=== PATIENT | female | born 1970 | race Caucasian/White ===

== ENCOUNTER 2017-08-03 13:08 | Observation (INO) | payer SELFPAY ==
[2017-08-03] MEDS ORDERED: NITROGLYCERIN 0.4 MG/TAB SL ONE (13:43)
[2017-08-03] MEDS ORDERED: ASPIRIN 81 MG CHEWABLE TABLET ONE (13:43)
[2017-08-03 14:12] LABS: Absolute Lymphocytes (CBC) 1.8 K/uL (0.7-4.9); Absolute Monocytes 0.5 K/uL (0.1-1.3); Absolute Neutrophil 3.7 K/uL (1.8-8.0); Basophils % 0.6 % (0-1.3); Eosinophils % 5.7 % (0-4.4); Hematocrit 44.9 % (36.0-45.0); Lymphocytes % 27.9 % (15.3-44.8); MCH 30.1 pg (27.0-35.0); MCV 89.9 fL (80-100); MPV 10.5 fL (7.6-11.3); Monocytes % 7.6 % (3.3-12.3); RBC Red Blood Cell Count 4.99 M/uL (3.86-4.86)
[2017-08-03 14:24] LABS: Bicarbonate 28 mEq/L (21-31); Glucose Level 92 mg/dL (65-120); Potassium 3.7 mEq/L (3.6-5.0); Sodium Level 139 mEq/L (135-145)
[2017-08-03 14:30] LABS: ALT/SGPT 13 IU/L (10-60); AST/SGOT 18 IU/L (10-42); Albumin 4.2 g/dL (3.2-5.5); Alkaline Phosphatase 89 IU/L (42-121); BUN Blood Urea Nitrogen 16 mg/dL (6-20); Bilirubin Direct < 0.1 mg/dL (0-0.2); Bilirubin Total 0.5 mg/dL (0.3-1.2); Glomerular Filtration Rate 82 mL/min (=/>90); Protein, Total 7.3 g/dL (6.0-8.3)
--- NOTE | 2017-08-03 14:50 | RAD REPORT ---
EXAM DESCRIPTION: RAD - Chest Single View - 08/03/2017 2:31 pm CLINICAL HISTORY: Chest pain. COMPARISON: None. FINDINGS: Portable technique limits examination quality. The lungs are grossly clear. The heart is normal in size. No displaced fractures. IMPRESSION: No acute intrathoracic process suspected.
--- NOTE | 2017-08-03 14:55 | EDPHYS ---
Physician Documentation [facility] Name: Janett Fajardo Age: 47 yrs Sex: Female : 1970 Arrival Date: 08/03/2017 Time: 13:09 Bed 23 Private MD: ED Physician Jules Orozco HPI: 08/03 14:52 This 47 yrs old Female presents to ER via Wheelchair with complaints of Chest jr8 Pain. 14:52 The patient or guardian reports chest pain that is located primarily in the anterior jr8 chest wall, left. Onset: acutely, yesterday, and became worse today, and became persistent today. The pain radiates to the left arm, left neck, left back. Associated signs and symptoms: Pertinent positives: nausea. The chest pain is described as a heaviness, a pressure. Duration: The patient or guardian reports a single episode. Modifying factors: The symptoms are alleviated by nothing. the symptoms are aggravated by nothing. Severity of pain: At its worst the pain was moderate in the emergency department the pain is unchanged. The patient has not experienced similar symptoms in the past. The patient has not recently seen a physician. 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 - Social history:: Smoking status: Patient/guardian denies using tobacco, never smoked. ROS: 14:52 Eyes: Negative for injury, pain, redness, and discharge, ENT: Negative for injury, jr8 pain, and discharge, Neck: Negative for injury, pain, and swelling, Respiratory: Negative for shortness of breath, cough, wheezing, and pleuritic chest pain, Abdomen/GI: Negative for abdominal pain, nausea, vomiting, diarrhea, and constipation, Back: Negative for injury and pain, MS/Extremity: Negative for injury and deformity, Skin: Negative for injury, rash, and discoloration, Neuro: Negative for headache, weakness, numbness, tingling, and seizure. 14:52 Cardiovascular: Positive for chest pain, Negative for edema, orthopnea, palpitations, paroxysmal nocturnal dyspnea. Exam: 14:52 Eyes: Pupils equal round and reactive to light, extra-ocular motions intact. Lids and jr8 lashes normal. Conjunctiva and sclera are non-icteric and not injected. Cornea within normal limits. Periorbital areas with no swelling, redness, or edema. ENT: Nares patent. No nasal discharge, no septal abnormalities noted. Tympanic membranes are normal and external auditory canals are clear. Oropharynx with no redness, swelling, or masses, exudates, or evidence of obstruction, uvula midline. Mucous membranes moist. Neck: Trachea midline, no thyromegaly or masses palpated, and no cervical lymphadenopathy. Supple, full range of motion without nuchal rigidity, or vertebral point tenderness. No Meningismus. Chest/axilla: Normal chest wall appearance and motion. Nontender with no deformity. No lesions are appreciated. Cardiovascular: Regular rate and rhythm with a normal S1 and S2. No gallops, murmurs, or rubs. Normal PMI, no JVD. No pulse deficits. Respiratory: Lungs have equal breath sounds bilaterally, clear to auscultation and percussion. No rales, rhonchi or wheezes noted. No increased work of breathing, no retractions or nasal flaring. Abdomen/GI: Soft, non-tender, with normal bowel sounds. No distension or tympany. No guarding or rebound. No evidence of tenderness throughout. Back: No spinal tenderness. No costovertebral tenderness. Full range of motion. Skin: Warm, dry with normal turgor. Normal color with no rashes, no lesions, and no evidence of cellulitis. MS/ Extremity: Pulses equal, no cyanosis. Neurovascular intact. Full, normal range of motion. Neuro: Awake and alert, GCS 15, oriented to person, place, time, and situation. Cranial nerves II-XII grossly intact. Motor strength 5/5 in all extremities. Sensory grossly intact. Cerebellar exam normal. Normal gait. 14:52 Constitutional: The patient appears alert, awake, in obvious pain, uncomfortable. Vital Signs: 13:14 BP 189 / 116; Pulse 65; Resp 19; Pulse Ox 100% on R/A; Pain 10/10; tw2 14:29 BP 138 / 90; Pulse 57; Resp 18; Pulse Ox 98% on R/A; tl3 15:25 BP 160 / 96; Pulse 65; Resp 18; Pulse Ox 99% on R/A; tl3 MDM: 13:13 Patient medically screened. jr8 14:52 HEART Score: History: Highly Suspicious (2), ECG: Normal (0), Age: > 45 and < 65 years jr8 (1), Risk Factors: 1 or 2 risk factors (1), [Hypertension] Troponin: < or = 1 x Normal Limit (0). The patient was given aspirin in the Emergency Department. Data reviewed: vital signs, nurses notes, lab test result(s), EKG, radiologic studies, plain films, and as a result, I will admit patient. Data interpreted: Pulse oximetry: on room air is 98 %. Interpretation: normal. Counseling: I had a detailed discussion with the patient and/or guardian regarding: the historical points, exam findings, and any diagnostic results supporting the discharge/admit diagnosis, lab results, radiology results, the need for further work-up and treatment in the hospital. Medication response: Nitro x 3 partially relieved pain. 08/03 13:19 Order name: Basic Metabolic Panel; Complete Time: 14:32 8 08/03 13:19 Order name: BNP; Complete Time: 14:48 jr8 08/03 13:19 Order name: CBC with Diff; Complete Time: 14:32 8 08/03 13:19 Order name: LFT's; Complete Time: 14:32 8 08/03 13:19 Order name: Magnesium; Complete Time: 14:32 jr8 08/03 13:19 Order name: PT-INR; Complete Time: 14:32 8 08/03 13:19 Order name: Ptt, Activated; Complete Time: 14:32 [facility] 08/03 13:19 Order name: Troponin (emerg Dept Use Only); Complete Time: 14:32 jr8 08/03 16:04 Order name: Troponin I; Complete Time: 10:01 EDMS 08/03 16:04 Order name: Thyroid Stimulating Hormone; Complete Time: 10:01 EDMS 08/03 16:07 Order name: Urine 5HIAA (Serotonin) EDKS 08/03 16:07 Order name: Urine Catecholamines,24 HR EDMS 08/03 16:07 Order name: Urine VMA 24 Hr EDKS 08/03 17:22 Order name: Urine Dipstick--Ancillary (enter results) ag 08/03 13:19 Order name: XRAY Chest (1 view); Complete Time: 14:51 jr8 08/03 13:19 Order name: EKG; Complete Time: 13:20 jr8 08/03 13:19 Order name: Cardiac monitoring; Complete Time: 13:59 jr8 08/03 13:19 Order name: EKG - Nurse/Tech; Complete Time: 16:46 jr8 08/03 13:19 Order name: IV Saline Lock; Complete Time: 13:59 jr8 08/03 13:19 Order name: Labs collected and sent; Complete Time: 13:59 jr8 08/03 13:19 Order name: O2 Per Protocol; Complete Time: 13:59 jr8 08/03 13:19 Order name: O2 Sat Monitoring; Complete Time: 13:59 8 08/03 13:19 Order name: Urine Dipstick-Ancillary (obtain specimen); Complete Time: 16:57 jr8 08/03 16:04 Order name: CONS Physician Consult; Complete Time: 20:27 EDMS 08/03 16:04 Order name: Echo with Doppler EDKS 08/03 16:04 Order name: Heart Healthy; Complete Time: 20:27 EDMS 08/03 16:05 Order name: Renal Ultrasound-Complete; Complete Time: 16:58 EDMS Administered Medications: 13:45 Drug: Nitroglycerin 0.4 mg Route: Sublingual; tl3 13:57 Drug: Nitroglycerin 0.4 mg Route: Sublingual; tl3 15:27 Follow up: Response: No adverse reaction tl3 15:27 Follow up: Response: No adverse reaction tl3 15:27 Follow up: Response: No adverse reaction tl3 13:58 Drug: Aspirin Chewable Tablet 324 mg Route: PO; tl3 15:27 Follow up: Response: No adverse reaction tl3 Disposition: 17:59 Co-signature as Attending Physician, Jules Orozco MD. rn Disposition: 08/03/17 14:55 Hospitalization ordered by Roxie Lopez for Observation. Preliminary diagnosis is Chest pain, unspecified. - Bed requested for Telemetry/MedSurg (observation). - Status is Observation. tl3 - Condition is Stable. - Problem is new. - Symptoms have improved. UTI on Admission? No Signatures: Dispatcher [employer] EDMS Jules Orozco MD MD rn Arnaldo Cordova PA PA jr8 Katey Hummel Tammy, RN RN tl3
--- NOTE | 2017-08-03 14:55 | ER ---
Nurse's Notes [facility] Name: Janett Fajardo Age: 47 yrs Sex: Female : 1970 Arrival Date: 08/03/2017 Time: 13:09 Bed 23 Private MD: Diagnosis: Chest pain, unspecified Presentation: 08/03 13:15 Presenting complaint: Patient states: i started having chest pain yesterday, it is now tw2 through to my back and down my left arm. Transition of care: patient was not received from another setting of care. Onset of symptoms was August 02, 2017. Care prior to arrival: None. 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 - Social history:: Smoking status: Patient/guardian denies using tobacco, never smoked. Screenin:16 Abuse screen: Denies threats or abuse. Nutritional screening: No deficits noted. tw2 Tuberculosis screening: No symptoms or risk factors identified. Fall Risk None identified. Assessment: 13:25 General: Appears uncomfortable, well groomed, well developed, well nourished, Behavior tl3 is calm, cooperative, appropriate for age. Pain: Complains of pain in anterior aspect of left upper chest and left breast Pain radiates to left arm Pain currently is 10 out of 10 on a pain scale. Pain began 1 day ago. Neuro: Level of Consciousness is awake, alert, obeys commands, Oriented to person, place, time, situation, Appropriate for age. Cardiovascular: Heart tones S1 S2 present Capillary refill < 3 seconds in bilateral fingers Rhythm is regular. Respiratory: Airway is patent Trachea midline Respiratory effort is even, unlabored, labored, Respiratory pattern is regular, symmetrical, Breath sounds are clear bilaterally. GI: No signs and/or symptoms were reported involving the gastrointestinal system. : No signs and/or symptoms were reported regarding the genitourinary system. EENT: No signs and/or symptoms were reported regarding the EENT system. Derm: No signs and/or symptoms reported regarding the dermatologic system. Musculoskeletal: No signs and/or symptoms reported regarding the musculoskeletal system. 15:25 Reassessment: Patient appears in no apparent distress at this time. No changes from tl3 previously documented assessment. Patient and/or family updated on plan of care and expected duration. Pain level reassessed. Patient is alert, oriented x 3, equal unlabored respirations, skin warm/dry/pink. hospitalist at bedside discussing POC. 16:47 Reassessment: No changes from previously documented assessment. Patient and/or family tl3 updated on plan of care and expected duration. Pain level reassessed. Patient is alert, oriented x 3, equal unlabored respirations, skin warm/dry/pink. Vital Signs: 13:14 BP 189 / 116; Pulse 65; Resp 19; Pulse Ox 100% on R/A; Pain 10/10; tw2 14:29 BP 138 / 90; Pulse 57; Resp 18; Pulse Ox 98% on R/A; tl3 15:25 BP 160 / 96; Pulse 65; Resp 18; Pulse Ox 99% on R/A; tl3 ED Course: 13:09 Patient arrived in ED. as 13:13 Arnaldo Cordova PA is PHCP. jr8 13:13 Jules Orozco MD is Attending Physician. jr8 13:16 Triage completed. tw2 13:16 Placed in gown. Bed in low position. Call light in reach. patient monitor on. Pulse ox tw2 on. NIBP on. 13:16 Arm band placed on. tw2 13:30 Initial lab(s) drawn, by me, sent to lab. Inserted saline lock: 22 gauge in right hand, tl3 using aseptic technique. Blood collected. 13:40 Annamaria Jordan, RN is Primary Nurse. tl3 14:27 Door closed. Lights dimmed. Warm blanket given. tl3 14:27 No provider procedures requiring assistance completed. tl3 14:28 X-ray(s) taken. tl3 14:28 Patient maintains SpO2 saturation greater than 95% on room air. tl3 14:29 X-ray completed. Portable x-ray completed in exam room. Patient tolerated procedure ag1 well. 14:32 XRAY Chest (1 view) In Process Unspecified. EDMS 14:55 Roxie Lopez MD is Hospitalizing Provider. jr8 16:31 Ultrasound completed. Patient tolerated well. hr 16:32 Renal Ultrasound-Complete In Process Unspecified. EDMS 17:18 Repeat lab(s) drawn. by me, sent to lab. Urine collected: clean catch specimen, clear. tl3 17:19 Patient admitted, IV remains in place. tl3 20:27 Urine Dipstick--Ancillary (enter results) Sent. tl3 20:27 Echo with Doppler Sent. tl3 Administered Medications: 13:45 Drug: Nitroglycerin 0.4 mg Route: Sublingual; tl3 13:57 Drug: Nitroglycerin 0.4 mg Route: Sublingual; tl3 15:27 Follow up: Response: No adverse reaction tl3 15:27 Follow up: Response: No adverse reaction tl3 15:27 Follow up: Response: No adverse reaction tl3 13:58 Drug: Aspirin Chewable Tablet 324 mg Route: PO; tl3 15:27 Follow up: Response: No adverse reaction tl3 Outcome: 14:55 Decision to Hospitalize by Provider. jr8 17:19 Admitted to Tele accompanied by [facility], via wheelchair, with chart, Report called to roland3 waldo RENTERIA 17:19 Condition: stable 17:29 Patient left the ED. tl3 Signatures: Dispatcher [employer] EDMS Oanh Lr hr Any Rodriguez as Arnaldo Cordova PA PA jr8 Carmelita Randolph ag1 Kiki Lakhani, RN RN tw2 Annamaria Jordan, RN RN tl3
[2017-08-03] MEDS ORDERED: ACETAMINOPHEN 500 MG TAB PO PRN (15:58)
[2017-08-03] MEDS ORDERED: ONDANSETRON 4 MG (ODT) TAB PO PRN (15:58)
[2017-08-03] MEDS: NA CHLORIDE 0.9% 1,000 ML IV SCH (16:00)
[2017-08-03] MEDS ORDERED: NITROGLYCERIN 0.4 MG/TAB SL PRN (16:01)
[2017-08-03] MEDS ORDERED: REGADENOSON 0.4 MG/5 ML SYR IV ONE (16:22)
--- NOTE | 2017-08-03 16:48 | RAD REPORT ---
EXAM DESCRIPTION: US - Renal Ultrasound-Complete - 08/03/2017 4:32 pm CLINICAL HISTORY: Hypertension COMPARISON: None. FINDINGS: The right kidney measures 10.2 x 5.3 x 4.9 cm. The left kidney measures 9.7 x 5.1 x 4.9 c m. Renal cortical thickness and echogenicity are normal. No hydronephrosis or suspicious renal mass. IMPRESSION: No hydronephrosis or suspicious renal mass. No other significant findings.
[2017-08-03] MEDS ORDERED: HYDRALAZINE HCL 10 MG TABLET PO PRN (17:24)
--- NOTE | 2017-08-03 17:24 | P.HP ---
Certification for Inpatient Patient admitted to: Observation With expected LOS: >2 Midnights Patient will require the following post-hospital care: None Practitioner: I am a practitioner with admitting privileges, knowledge of patient current condition, hospital course, and medical plan of care. Services: Services provided to patient in accordance with Admission requirements found in Title 42 Section 412.3 of the Code of Federal Regulations Patient History Date of Service: 08/03/17 Primary Care Provider: None Reason for admission: Chest Pain History of Present Illness: 47-year-old female with significant past medical history of uncontrolled hypertension, pituitary adenoma sever years ago resected who presented to the ED complaining of having some chest pain that started about 2-3 days ago. Patient stated that the chest pain has been radiating down her left arm going up to the neck area and she has been feeling sharp shooting pain along with no pain at the same time. Patient denies having any shortness of breath nausea vomiting fever chills associated with the chest pain. Patient is 7/10 women that were worse. Patient states that she is not able to take a deep breath due to pain. Patient states that she has had similar episodes in the past when she would have elevated blood pressure. Patient has been seen at all to see ER several times along with some local primary care providers here before her uncontrolled hypertension and similar symptoms and was diagnosed with fibromyalgia. Patient states that she had her breast left side has always been sore and she has always wanted a breast reduction surgery to help with that. Patient's symptoms may awake while in the ER and has several physicians that she is busy within the past 6 months for similar symptoms. In the ER patient had within normal limits EKG and troponin x1 negative patient was admitted to the hospital for ACS rule out Allergies minocycline Allergy (Verified 08/03/17 16:10) Hives/Rash Home Medications: Amlodipine Besylate [Amlodipine Besylate] 10 mg PO DAILY 08/03/17 Losartan Potassium [Losartan Potassium] 100 mg PO DAILY 08/03/17 Review of Systems 10-point ROS is otherwise unremarkable Physical Examination - Physical Exam General: Alert, In no apparent distress, Oriented x3 HEENT: Atraumatic, PERRLA, Mucous membr. moist/pink, EOMI, Sclerae nonicteric Neck: Supple, 2+ carotid pulse no bruit, No LAD, Without JVD or thyroid abnormality Respiratory: Clear to auscultation bilaterally, Normal air movement Cardiovascular: Regular rate/rhythm, Normal S1 S2 Gastrointestinal: Normal bowel sounds, No tenderness Musculoskeletal: No tenderness Integumentary: No rashes Neurological: Normal gait, Normal speech, Normal strength at 5/5 x4 extr, Normal tone, Normal affect Lymphatics: No axilla or inguinal lymphadenopathy - Studies Laboratory Data (last 24 hrs) 08/03/17 13:50: PT 11.8, INR 1.00, APTT 29.9 08/03/17 13:50: WBC 6.3, Hgb 15.0, Hct 44.9, Plt Count 210 08/03/17 13:50: B-Natriuretic Peptide 37 08/03/17 13:50: Sodium 139, Potassium 3.7, BUN 16, Creatinine 0.76, Glucose 92, Magnesium 2.0, Total Bilirubin 0.5, AST 18, ALT 13, Alkaline Phosphatase 89 Assessment and Plan - Problems (Diagnosis) (1) ACS (acute coronary syndrome) Current Visit: Yes Status: Acute Plan: Chest Pain on the left side. Most likely Muscloskeletal vs Demand Ischemia -Cardiology consulted -ECHo pending -ASA, Terence inhibitor and statin. Hold BB due to Bradycardia (2) HTN (hypertension) Current Visit: Yes Status: Acute Plan: Elevated HTN. -Start on Clonidine home medication Qualifiers: Hypertension type: essential hypertension Qualified Code(s): I10 - Essential (primary) hypertension (3) Fibromyalgia Current Visit: Yes Status: Chronic Discharge Plan: Home Plan to discharge in: 24 Hours - Advance Directives Does patient have a Living Will: No Does patient have a Durable POA for Healthcare: No - Code Status/Comfort Care Code Status Assessed: Yes Critical Care: No
[2017-08-03 17:45] VITALS: O2SAT 99
[2017-08-03 17:50] LABS: Urine Blood NEGATIVE (NEG); Urine Glucose NEGATIVE (NEG); Urine Protein NEGATIVE (NEG)
[2017-08-03 18:12] VITALS: BMI 30.9
[2017-08-03] MEDS ORDERED: MORPHINE 2 MG/ML SYR IV PRN (20:03)
[2017-08-03] MEDS ORDERED: MORPHINE 4 MG/ML SYR ONE (20:24)
[2017-08-03] MEDS ORDERED: ATORVASTATIN 40 MG TAB PO SCH (21:00)
[2017-08-04] MEDS ORDERED: MORPHINE 4 MG/ML SYR ONE (00:30)
[2017-08-04] MEDS: NA CHLORIDE 0.9% 1,000 ML IV SCH ×2 (03:57→14:03)
[2017-08-04] MEDS ORDERED: MORPHINE 4 MG/ML SYR IV PRN (07:47)
--- NOTE | 2017-08-04 08:01 | EKG ---
Test Date: 2017-08-03 Test Time: 14:39:32 Plastics Scientist: PUNEET MEASUREMENT RESULTS: Intervals: Rate: 46 LA: 138 QRSD: 82 QT: 428 QTc: 374 [place]haw: P: 15 LA: 138 QRS: 0 T: -7 INTERPRETIVE STATEMENTS: Sinus bradycardia Nonspecific T wave abnormality Abnormal ECG No previous ECG available for comparison Electronically Signed On 08-04-17 07:59:32 CDT by Surinder Welch
[2017-08-04] MEDS ORDERED: LISINOPRIL 5 MG TAB PO SCH (09:00)
[2017-08-04] MEDS ORDERED: LOSARTAN POTASSIUM 50 MG TABLET PO SCH (09:00)
[2017-08-04] MEDS ORDERED: cloNIDine HCl 0.1 MG TAB PO SCH (09:00)
[2017-08-04] MEDS ORDERED: HOME MED 1 EA UNK (Losartan Potassium [Losartan Potassium] 100 MG) PO SCH (09:00)
[2017-08-04] MEDS ORDERED: ASPIRIN EC 81 MG TAB PO SCH (09:00)
[2017-08-04] MEDS ORDERED: AMLODIPINE 10 MG TAB PO SCH (09:00)
[2017-08-04] MEDS ORDERED: cloNIDine HCl 0.1 MG TAB PO PRN (09:52)
[2017-08-04] MEDS ORDERED: HYDRALAZINE HCL 20 MG/ML VIAL ONE (12:18)
[2017-08-04] MEDS ORDERED: ONDANSETRON 4 MG/2 ML VIAL IV ONE (12:51)
--- NOTE | 2017-08-04 13:00 | TREADPHA ---
DX: CHEST PAIN Date of Study: 08/04/17 Ht: 5' 3 " Wt: 175 lb 0 oz Consulting Physician: CHRISTOPHER MEDICATIONS: TYLENOL, ASPIRIN, TENORMIN, LIPITOR, CATAPRES, NITROSTAT, AP[PRESOLINE, ZOFRAN, DIOVAN HISTORY: 47 YEAR OLD FEMALE WITH COMPLAINTS OF CHEST PAIN. MEDICAL HISTORY OF HYPERTENSION, FIBROMYALSIA, EBSTEIN VIRUS PHYSICIAL EXAMINATION: RESTING B.P.: 198/100 RESTING H.R.: 77 RESTING EKG: NORMAL PROTOCOL: LEXISCAN EXERCISE TIME: 3:30 B.P. AT PEAK STRESS: 169/98 155/94 IMPRESSION: LEXISCAN INJECTED, CARDIOLITE INJECTED PER PROTOCOL. SEE NUCLEAR MEDICINE REPORT. NO VENTRICULAR TACHYCARDIA, NO SUPRA VENTRICULAR TACHYCARDIA. OCCASIONAL PREMATURE VENTRICULAR COMPLEXES AFTER ADMINISTRATION OF LEXISCAN. HYDRALAZINE GIVEN AT 12:23 TEN MILLIGRAMS. NON DIAGNOSTIC EKG WITH LEXISCAN STRESS.
--- NOTE | 2017-08-04 13:33 | RAD REPORT ---
EXAM DESCRIPTION: NM - Rest Stress Cardiac Imaging - 08/04/2017 1:26 pm CLINICAL HISTORY: Chest pain. COMPARISON: None. TECHNIQUE: The patient was administered approximately 10mCi of Tc 99m Sestamibi prior to resting SPE CT imaging of the heart. The patient was then administered approximately 30 mCi of Tc 99m Sestamibi f ollowing exercise or pharmacologic stress. Multiplanar SPECT images were reviewed. FINDINGS: Small area of diminished radiotracer activity involves the apical left ventricular myocar dium on rest and stress images. Otherwise there is uniformity of radiotracer uptake involving the left ventricular myocardium. The left ventricular ejection fraction equals 56% IMPRESSION: Small area of diminished radiotracer activity involving the apical left ventricular myoc ardium may represent physiologic apical thinning There is no evidence of stress-induced ischemia
--- NOTE | 2017-08-04 14:08 | RAD REPORT ---
EXAM DESCRIPTION: US - Abdomen Exam Limited - 08/04/2017 1:47 pm CLINICAL HISTORY: Abdominal pain. COMPARISON: None. FINDINGS: The gallbladder wall is not thickened. A gallstone is not seen. The biliary tree is normal caliber. IMPRESSION: Unremarkable gallbladder ultrasound.
--- NOTE | 2017-08-04 15:09 | CON ---
Chief Complaint: Chest pain. History Of Present Illness: Ms. Fajardo has been having chest pain off and on for several days, perh aps as long as a week. It is left breast, left pectoral muscle underneath her shoulder blade. It do es not seem to get very much worse with anything, although it may be slightly worse when she lies fla t, a little better when she sits up, worse if she sleeps on her left side, better if she sleeps on he r right side, taking a deep breath does not change anything. 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 Medications: Outpatient medications are Edarbi, atenolol, clonidine. Allergies: SHE IS ALLERGIC TO HYDROCHLOROTHIAZIDE AND MINOCYCLINE. Social History: She uses no tobacco. Rare alcohol. No illegal drugs. Physical Examination: Vital Signs: Height 5 feet 3 inches, 175 pounds. HEENT: Normal. Lungs: Clear. Heart: Exam within normal limits. There is no friction, rub. Abdomen: Soft. Extremities: Normal. No cyanosis, clubbing, or edema. Distal pulses are normal. Diagnostic Data: EKG shows nonspecific T-wave flattening. She has a normal complete blood count, no rmal liver function tests, normal B-natriuretic peptide, normal TSH, troponins. Blood sugars 92, cre atinine 0.76. Her blood pressure is 115/67 today, when she came in it was elevated. Impression: This is probably noncardiac pain. I am not sure what is causing it. There is rash to s uggest it is shingles. It is in kind of a dermatome presentation. There may be a breast cyst. I wa s not able to palpate anything, but her breast tissue seems to be tender, as well as the pectoral mus van. We will do a stress test and echo, and I think it might be hunter to do an ultrasound of the abdo men at some point to see if she has gallstones. She has had prior hysterectomy, prior inguinal herni a surgeries. She is 1, para 1. We will see what the test results show. We will be ready to do a cardiac cath if there is an indication after we do the noninvasive test. JESUS/VAN Voice ID: [id number] Report ID: [id number]
--- NOTE | 2017-08-04 15:26 | ECHO ---
HEIGHT: 5 ft 3 in WEIGHT: 175 lb 0 oz DATE OF STUDY: 08/04/[address]: Roxie Lopez MD 2-DIMENSIONAL: YES M.MODE: YES DOPPLER: YES COLOR FLOW: YES TDS: PORTABLE: DEFINITY: BUBBLE STUDY: DIAGNOSIS: CHEST PAIN CARDIAC HISTORY: CATHERIZATION: NO SURGERY: NO PROSTHETIC VALVE: NO PACEMAKER: NO MEASUREMENTS (cm) DIASTOLIC (NORMALS) SYSTOLIC (NORMALS) IVSd 1.2 (0.6-1.2) LA Diam (1.9-4.0) LVEF 65% LVIDd 3.0 (3.5-5.7) LVIDs 2.0 (2.0-3.5) %FS 34% LVPWd 1.3 (0.6-1.2) Ao Diam 2.7 (2.0-3.7) 2 DIMENSIONAL ASSESSMENT: RIGHT ATRIUM: NORMAL LEFT ATRIUM: NORMAL RIGHT VENTRICLE: NORMAL LEFT VENTRICLE: NORMAL TRICUSPID VALVE: NORMAL MITRAL VALVE: NORMAL PULMONIC VALVE: NORMAL AORTIC VALVE: NORMAL PERICARDIAL EFFUSION: NONE AORTIC ROOT: NORMAL LEFT VENTRICULAR WALL MOTION: NORMAL DOPPLER/COLOR FLOW: NORMAL COMMENTS: 2-DIMENSIONAL ECHOCARDIOGRAM WITH DOPPLER. TECHNOLOGIST: ROSE MARIE AYALA
[2017-08-04 16:38] VITALS: BP 157/93; TEMP 97.3
--- NOTE | 2017-08-04 17:11 | P.SSS ---
Patient History Date of Service: 08/04/17 Primary Care Provider: None Reason for admission: Chest Pain History of Present Illness: 47-year-old female with significant past medical history of uncontrolled hypertension, pituitary adenoma sever years ago resected who presented to the ED complaining of having some chest pain that started about 2-3 days ago. Patient stated that the chest pain has been radiating down her left arm going up to the neck area and she has been feeling sharp shooting pain along with no pain at the same time. Patient denies having any shortness of breath nausea vomiting fever chills associated with the chest pain. Patient is 7/10 women that were worse. Patient states that she is not able to take a deep breath due to pain. Patient states that she has had similar episodes in the past when she would have elevated blood pressure. Patient has been seen at all to see ER several times along with some local primary care providers here before her uncontrolled hypertension and similar symptoms and was diagnosed with fibromyalgia. Patient states that she had her breast left side has always been sore and she has always wanted a breast reduction surgery to help with that. Patient's symptoms may awake while in the ER and has several physicians that she is busy within the past 6 months for similar symptoms. In the ER patient had within normal limits EKG and troponin x1 negative patient was admitted to the hospital for ACS rule out Allergies hydrochlorothiazide Allergy (Verified 08/03/17 18:25) Itching/Hives/Rash minocycline Allergy (Verified 08/03/17 16:10) Hives/Rash Home Medications: Atenolol 1 tab PO DAILY 08/03/17 Azilsartan Medoxomil [Edarbi] 1 tab PO DAILY 08/03/17 Clonidine HCl [Catapres*] 1 tab PO BIDP PRN 08/03/17 Atorvastatin Calcium [Lipitor] 40 mg PO BEDTIME #30 tab 08/04/17 - Past Medical/Surgical History Has patient received pneumonia vaccine in the past: No Diabetic: No -: htn -: hysterectomy -: surgical repair inguinal hernia X2 -: fibromyalgia -: epsteinbarre -: anxiety -: depression -: TMJ -: hysterectomy -: inguinal hernia repair X2 - Family History Mother -: Hypertension, Cancer, Other (see notes) Notes: fibromyalgia, breast cancer - Social History Smoking Status: Former smoker Alcohol use: No CD- Drugs: No Caffeine use: Yes Place of Residence: Home Review of Systems 10-point ROS is otherwise unremarkable Physical Examination - Vital Signs Temperature: 97.3 F Blood Pressure: 157/93 Pulse: 82 Respirations: 18 Pulse Ox (%): 98 - Physical Exam General: Alert, In no apparent distress HEENT: Atraumatic, PERRLA, Mucous membr. moist/pink, EOMI, Sclerae nonicteric Neck: Supple, 2+ carotid pulse no bruit, No LAD, Without JVD or thyroid abnormality Respiratory: Clear to auscultation bilaterally, Normal air movement Cardiovascular: Regular rate/rhythm, Normal S1 S2 Gastrointestinal: Normal bowel sounds, No tenderness Musculoskeletal: No tenderness Integumentary: No rashes Neurological: Normal gait, Normal speech, Normal strength at 5/5 x4 extr, Normal tone, Normal affect Lymphatics: No axilla or inguinal lymphadenopathy - Diagnosis (Problem(s)) (1) ACS (acute coronary syndrome) Onset Date: 08/04/17 Current Visit: Yes Status: Acute Plan: Chest Pain on the left side. Most likely Muscloskeletal -Stress test negative -ECHO Normal -U/S abd normal -Renal U/S normal -DC home -F/U with PCP (2) HTN (hypertension) Onset Date: 08/04/17 Current Visit: Yes Status: Acute Plan: Elevated HTN. -Restart on home medication Qualifiers: Hypertension type: essential hypertension Qualified Code(s): I10 - Essential (primary) hypertension (3) Fibromyalgia Onset Date: 08/04/17 Current Visit: Yes Status: Chronic Treatment Summary: Pt was seen in the Hospital for Chest pain. had Cardiac W/u done which was negative for acute ischemic event. Cardiology was consulted who reccs putting pt on HTN medication. Pt does take HTN medication outside and was asked to restart them. Pt also had u/s of the abd done here in the hospital which was negative for any abnormality. Pt was then discharged home. However, Pt refused discharged stating she would like to get mammogram and breast reduction surgery as she feels her chest pain is due to the her enlarged breast. Further she mentioned that she wants to get an ultrasound of her breast to evaluate for any other abnormality. Pt was made aware that those are outpt and elective procedures and she will need to f/u OP with PCP for further workup and surgical referral for elective surgery. She was also educated extensively on taking medication that is she is prescribed. She then asked to change physician and get a second opinion. Dr. Manzano was consulted and agreed with the above plan and pt was discharged home. Once the nurse when to discharge the pt she stated she is hungry and would like to eat first before going home. Pt was given V8 and sandwich to eat and then discharged home under stable condition. - Disposition Disposition: ROUTINE DISCHARGE Condition: GOOD Patient Discharge Instructions: Please establish care with PCP in 1 to 2 weeks post discharge you will be provided with list of local PCP. Please f/u with Dr Welch in the clinic in 2 week post discharge. New medication. Lipitor 40mg daily Diet: Regular Activity: Ad emily
[2017-08-05] MEDS ORDERED: VALSARTAN 80 MG TAB PO SCH (09:00)
[2017-08-05] MEDS ORDERED: ATENOLOL 50 MG TAB PO SCH (09:00)
== END 2017-08-04 20:20 | disposition home or self-care (01) ==
LOC: ER 13:08 → ERHOLD 16:21 → 4TH 17:11
PROVIDERS: ADMIT Family Medicine; ATTEND Family Medicine
DX: I24.9 Acute ischemic heart disease, unspecified (principal); I10 Essential (primary) hypertension; G89.4 Chronic pain syndrome; F41.9 Anxiety disorder, unspecified; M79.7 Fibromyalgia
CPT/HCPCS: 36415; 71045; 76705; 76770; 78452; 80048; 80076; 81003; 83735; 83880; 84443; 84484; 85025; 85610; 85730; 93005; 93017; 93306; 99285; A9500; G0378; J0360; J2405; J2785; J7030